=== PATIENT | female | born 1970 | race Caucasian/White ===

== ENCOUNTER 2018-01-10 21:55 | Emergency (ER) | payer OTHER ==
[~2018-01-10] VITALS: Ht 162.6 cm; Wt 99.8 kg
[~2018-01-10 21:55] MED LIST: ALLEGRA ALLERG180 MG PO; CELEBREX100 MG PO; DOLOGEN CAPLET1 EACH PO
[2018-01-10] MEDS ORDERED: COZAAR25 MG (22:06)
[2018-01-10] MEDS ORDERED: LANTUS SOL100 UNIT/1 (22:07)
[2018-01-10] MEDS ORDERED: AMARYL (22:07)
[2018-01-11] MEDS ORDERED: CIPRO500 MG PO (01:56)
[2018-01-11] MEDS ORDERED: FORTAMET1000 MG PO (01:56)
== END 2018-01-11 03:04 | disposition home or self-care (01) ==
LOC: ER 21:55
DX: J06.9 Acute upper respiratory infection, unspecified (principal); E11.9 Type 2 diabetes mellitus without complications

== ENCOUNTER 2018-01-12 12:17 | Emergency (ER) | payer OTHER ==
[~2018-01-12] VITALS: Ht 162.6 cm; Wt 99.8 kg
[~2018-01-12 12:17] MED LIST changes: +AMARYL; +CIPRO500 MG PO; +COZAAR25 MG; +FORTAMET1000 MG PO; +LANTUS SOL100 UNIT/1
== END 2018-01-12 18:32 | disposition home or self-care (01) ==
LOC: ER 12:17
DX: E11.65 Type 2 diabetes mellitus with hyperglycemia (principal); J31.2 Chronic pharyngitis

== ENCOUNTER 2019-02-21 14:39 | Emergency (ER) | payer OTHER ==
[~2019-02-21] VITALS: Ht 162.6 cm; Wt 99.8 kg
== END 2019-02-21 22:52 | disposition home or self-care (01) ==
LOC: ER 14:39
DX: S80.11XA Contusion of right lower leg, initial encounter (principal); S40.012A Contusion of left shoulder, initial encounter; M62.838 Other muscle spasm; W18.39XA Other fall on same level, initial encounter; Y93.89 Activity, other specified; Y92.89 Other specified places as the place of occurrence of the external cause; Y99.8 Other external cause status

== ENCOUNTER 2019-05-18 11:26 | Emergency (ER) | payer OTHER ==
[~2019-05-18] VITALS: Ht 162.6 cm; Wt 99.8 kg
[2019-05-18] MEDS ORDERED: MECLIZINE HCL25 MG PO (15:26)
== END 2019-05-18 15:37 | disposition home or self-care (01) ==
LOC: ER 11:26
DX: R42 Dizziness and giddiness (principal); E11.9 Type 2 diabetes mellitus without complications

== ENCOUNTER 2020-07-23 18:44 | Emergency (ER) | payer OTHER ==
[~2020-07-23] VITALS: Ht 157.5 cm; Wt 95.3 kg
[~2020-07-23 18:44] MED LIST changes: +MECLIZINE HCL25 MG PO
[2020-07-23] MEDS ORDERED: JARDIANCE25 MG (19:15)
[2020-07-23] MEDS ORDERED: LANTUS SOL100 UNIT/1 (19:15)
[2020-07-23] MEDS ORDERED: NEURONTIN300 MG (19:16)
[2020-07-23] MEDS ORDERED: CRESTOR20 MG (19:16)
[2020-07-24] MEDS ORDERED: PEPCID20 MG PO (02:45)
[2020-07-24] MEDS ORDERED: NAPROXEN500 MG PO (02:45)
== END 2020-07-24 03:00 | disposition home or self-care (01) ==
LOC: ER 18:44
DX: N83.292 Other ovarian cyst, left side (principal); D72.828 Other elevated white blood cell count; R10.31 Right lower quadrant pain; R10.2 Pelvic and perineal pain; Z03.818 Encounter for observation for suspected exposure to other biological agents ruled out

== ENCOUNTER 2021-12-12 10:24 | Emergency (ER) | payer OTHER ==
[~2021-12-12] VITALS: Ht 162.6 cm; Wt 108.9 kg
[~2021-12-12 10:24] MED LIST changes: +CRESTOR20 MG; +JARDIANCE25 MG; +NAPROXEN500 MG PO; +NEURONTIN300 MG; +PEPCID20 MG PO
[2021-12-12] MEDS ORDERED: ACTOS15 MG PO (10:49)
[2021-12-12] MEDS ORDERED: MONTELUKAST SODI4 M1 PO (10:51)
[2021-12-12] MEDS ORDERED: ZYRTEC10 M3 PO (10:52)
== END 2021-12-12 14:15 | disposition home or self-care (01) ==
LOC: ER 10:24
DX: R10.9 Unspecified abdominal pain (principal); G89.29 Other chronic pain; Z20.822 Contact with and (suspected) exposure to COVID-19